=== PATIENT | female | born 1955 | race Caucasian/White ===

== ENCOUNTER → 2016-11-03 | Outpatient (CLI) | payer OTHER, SELFPAY ==
--- NOTE | 2016-11-03 10:23 | REP ---
CT LUMBAR SPINE WITHOUT CONTRAST: HISTORY: Disc displacement. There are four lumbar type vertebral bodies. The lowest intervertebral disc is assumed to the L4-S1 intervertebral disc. A diffuse disc bulge is present at the T12-L1 level. There is minimal compression of the thecal sac. The T12 nerves exit the neural foramina without compression. There is no disc bulge or herniation at the L1-2 level. The L1 nerves exit the neural foramina without compression. A diffuse disc bulge is present at the L2-3 level. There is hypertrophy of the ligamenta flava and posterior articulating facets. These findings produce moderate central canal stenosis. The L2 nerves exit the neural foramina without compression. A diffuse disc bulge is present at the L3-4 level. There is hypertrophy of the ligamenta flava and posterior articulating facets. These findings produce minimal central canal stenosis. A small left intraforaminal disc protrusion is present. There is compression of the left L3 nerve in the neural foramen. The right L3 nerve exits the neural foramen without compression. A diffuse disc bulge and small central disc protrusion with associated osteophyte formation is present at the L4-S1 level. The disc protrusion appears partially calcified. There is minimal compression of the thecal sac. There is hypertrophy of the posterior articulating facets. There is compression of the L4 nerves in the neural foramina. The L2-3 through L4-5 intervertebral discs are decreased in height. Vacuum phenomenon is present at the L4-S1 level. These findings are consistent with disc degeneration. IMPRESSION: 1. Diffuse disc bulge at the T12-L1 level with minimal thecal sac compression. 2. Moderate central canal stenosis at the L2-3 level secondary to disc bulge, ligamentous and facet hypertrophy. 3. Minimal central canal stenosis at the L3-4 level secondary to disc bulge, ligamentous and facet hypertrophy. A small left intraforaminal disc protrusion is present. There is compression of the left L3 nerve in the neural foramen. 4. Diffuse disc bulge and small central disc protrusion at the L4-S1 level with minimal thecal sac compression. There is compression of the L4 nerves in the neural foramina. Signed by Jarrell Christy MD 11/03/2016 10:29 A
== END ==
LOC: M RAD 09:32
PROVIDERS: ATTEND Orthopaedic Surgery
DX: M51.26 Other intervertebral disc displacement, lumbar region (principal)